=== PATIENT | female | born 1960 | race Caucasian/White ===

== ENCOUNTER 2016-09-29 04:21 | Inpatient (IN) | payer BC ==
[2016-09-16 09:15] LABS: BASOPHILS 0.8 %; BASOPHILS ABSOLUTE 0.05 10/3/uL (0.0-0.16); EOSINOPHILS 2.2 %; EOSINOPHILS ABSOLUTE 0.13 10/3/uL (0.0-0.53); HEMOGLOBIN 14.4 g/dL (12.0-16.0); IMMATURE GRANULOCYTES 0.3 %; IMMATURE GRANULOCYTES ABSOLUTE 0.02 10/3/uL (0.0-0.11); LYMPHOCYTES 37.5 %; LYMPHOCYTES ABSOLUTE 2.26 10/3/uL (0.67-4.30); MEAN CORPUS HGB CONC 34.3 g/dL (32.0-36.0); MEAN PLATELET VOLUME 8.6 fL (9.2-13.0); MONOCYTES 5.1 %; MONOCYTES ABSOLUTE 0.31 10/3/uL (0.21-1.20); NEUTROPHILS 54.1 %; NEUTROPHILS ABSOLUTE 3.25 10/3/uL (2.02-8.40); PLATELET COUNT 361 10/3/uL (150-400); RBC DISTRIBUTION WIDTH 13.8 % (12.0-16.0); RED CELL COUNT 4.96 10/6/uL (4.0-5.6)
[2016-09-16 09:17] LABS: MANUAL DIFF NO %; MEAN CORPUSCULAR VOLUME 84.7 fL (80-100)
[2016-09-16 09:28] LABS: INTERNATIONAL NORMAL RATI 1.1 UNITS (-); PROTIME (NOT ORD) 13.8 SEC (12.0-14.5)
[2016-09-16 09:32] LABS: A/G RATIO 1.4 (0.7-1.9); ALBUMIN 4.2 G/DL (3.5-5.0); ALKALINE PHOSPHATASE 98 U/L (45-117); BUN (BLOOD UREA NITROGEN) 10 MG/DL (6-23); CALCIUM, SERUM 9.4 MG/DL (8.5-10.4); CHLORIDE, SERUM 108 MMOL/L (96-112); CO2 (CARBON DIOXIDE) 27 MMOL/L (24-34); CREATININE 0.75 MG/DL (0.55-1.02); GFR AFRICAN AMERICAN 103 ML/MIN (>=60); GFR NON AFRICAN AMERICAN 88 ML/MIN (>=60); GLOBULIN 2.9 G/DL (2.5-4.1); GLUCOSE, SERUM 108 MG/DL (60-99); SGOT(AST) 20 U/L (5-40); SGPT(ALT) 31 U/L (5-65); SODIUM, SERUM 140 MMOL/L (135-148); TOTAL BILIRUBIN 0.6 MG/DL (0-1.2); TOTAL PROTEIN 7.1 G/DL (6.0-8.5)
[2016-09-16 10:50] LABS: ASCORBIC ACID (UR NOT ORDER) NEG (NEG); BILIRUBIN, URINE NEGATIVE (NEG); KETONE, URINE NEGATIVE (NEG); LEUKOCYTE ESTERASE(NOT OR SMALL (NEG); WBC (NOT ORDERED) (RFLEX) 4 (0-5)
--- NOTE | ~2016-09-29 | DS ---
Discharge Summary [facility] [address] [place]. [address] NAME: ROLAND GUTIÉRREZ : 58 STATUS : DIS IN PAT#: [id number] AGE: 56 ADM/REG DATE : 09/29/16 MR#: [id number] REPORT SERV DATE: 10/18/16 DICTATED BY: ALFREDA MATUTE DATE: 10/14/16 REPORT STATUS : Draft TRANSCRIBED BY: DORINDA DATE: 10/14/16 Data Collection from hospitalization DISCHARGE DIAGNOSES: 1. Severe bilateral knee degenerative joint disease. 2. Arthritis. CONSULTATIONS: None. PROCEDURES: 1. Bilateral posterior stabilized total knee replacement, cemented, 09/29/2016. 2. Venous Doppler ultrasound of the bilateral lower extremities, 10/01/2016. PATHOLOGY: Bone and soft tissue, right and left knee arthroplasty-degenerative joint disease with eburnation. No infection or neoplasm. MEDICATIONS: 1. Vitamin D 2000 units daily. 2. Colace 100 mg twice a day. 3. Ferrous sulfate 300 mg with breakfast and supper. 4. Theragran tablets, one tablet with breakfast. 5. Coumadin daily as instructed. 6. Tylenol 650 mg every 4 hours as needed. 7. Mylanta 30 mL as needed. 8. Dulcolax 15 mg as needed. 9. Marinol 5 mg every 8 hours as needed. 10.[place] 7.5/325 mg one tablet every 4 hours as needed. 11.Milk of magnesia 30 mL as needed. 12.Zofran 4 mg every 4 hours as needed. 13.Percocet 5/325 mg two tablets every 4 hours as needed as instructed. 14.MiraLAX one packet twice a day as needed. 15.Phenergan 25 mg every 4 hours as needed. CONDITION AT DISCHARGE: Stable. DISPOSITION: The patient was discharged to [facility] on a regular diet with activities as instructed. She would follow up with me on 10/12/2016. HOSPITAL COURSE: This is a 56-year-old female, who has been seen in the clinic with bilateral knee pain. She had failed NSAIDs and injections. The patient has severe bilateral knee degenerative joint disease. Treatment options were discussed and it was elected to proceed with surgical intervention. She was admitted to the hospital at this time for further evaluation and treatment. Upon admission, she was taken to the operating room where she underwent the above-mentioned procedure. She tolerated this well. There were no complications. On postop day #1, she was doing well. She was up sitting in a bedside chair. She did have some nausea. On postop day #2, she complained of some increased pain. Her blood pressure was in the 80s/50s Discharge Summary [facility] [id number] [place]. [address] NAME: ROLAND GUTIÉRREZ : 58 STATUS : DIS IN PAT#: [id number] AGE: 56 ADM/REG DATE : 09/29/16 MR#: [id number] REPORT SERV DATE: 10/18/16 DICTATED BY: ALFREDA MATUTE DATE: 10/14/16 REPORT STATUS : Draft TRANSCRIBED BY: DORINDA DATE: 10/14/16 and narcotics were held due to her blood pressure. SCDs/HIWOT hose were in place. Homans sign was positive. Venous Doppler ultrasound of the bilateral lower extremities was performed and was negative for DVT. Over the next couple of days, she continued to progress. She had better pain control. Discharge planning was performed. Her hypotension was improving. She was transfused one unit of packed red blood cells. She was encouraged to mobilize with physical therapy. She was progressing slowly. Discharge planning was performed. We encouraged oral fluids. On 10/03/2016, the patient said she was feeling better. She was alert and cooperative. INR level was 2.3. Discharge instructions were given. Due to her improved and stable condition, she was discharged to [facility] with the above-stated instructions. Information collected by: Laverne Akbar I submit the above information as my discharge summary. SHARIFA/DORINDA Rosemarie Matute M.D. / [id number] CC: Erich Carmona M.D. [facility]
--- NOTE | ~2016-09-29 | OP ---
Record Of Operation [facility] [address] [place]. [address] NAME: ROLAND GUTIÉRREZ : 58 STATUS : ADM IN PAT#: [id number] AGE: 56 ADM/REG DATE : 09/29/16 MR#: [id number] REPORT SERV DATE: 09/29/16 DICTATED BY: ALFREDA MATUTE DATE: 09/29/16 REPORT STATUS : Draft TRANSCRIBED BY: MODShanta DATE: 09/29/16 DATE OF PROCEDURE: 09/29/2016 PREOPERATIVE DIAGNOSIS: Severe bilateral knee degenerative joint disease. POSTOPERATIVE DIAGNOSIS: Severe bilateral knee degenerative joint disease. OPERATION: Bilateral posterior stabilized total knee replacement, cemented. SIDE: Right and left. SIZE: See chart. ANESTHESIA: See chart. ESTIMATED BLOOD LOSS: About 10 mL, each knee. TOURNIQUET TIME: Approximately 1 hour and 10 minutes. COMPLICATIONS: None. SPECIMENS: Articular surfaces. PROCEDURE: The patient was appropriately identified and marked. The operative side agreed with the consent form and it was checked by all members of the surgical team. The patient was taken to the operating room and anesthesia was induced per the anesthesiologist. The patient was carefully transferred to the operating table without incident. The patient received appropriate prophylactic antibiotics and a Canales catheter was placed in the standard sterile technique. The patient was then carefully positioned, padded, prepped and draped in the normal sterile fashion. The operative leg had been appropriately identified and checked by all members of the operating team against the consent form and found to be the correct limb. The patient's lower extremity was then exsanguinated with an Juan Alberto wrap and a tourniquet was inflated to 350 mmHg. Sharp dissection was carried out through a straight midline longitudinal incision and electrocautery through the fat. Sharp quad splitting approach was carried out between about the medial 10 percent of the tendon and the lateral 90 percent of the tendon and down around the medial aspect of the patella and then 1 cm medial to the tibial tubercle. The patella was carefully everted and the posterior fat pad was excised and gentle MCL elevation was carried out off the proximal medial tibia subperiosteally. IM guide was placed in the distal femur after using the appropriate drill. The distal femoral cutting guide was held with 2 pins and the distal cut made. Meniscal fragments and the ACL and the PCL were excised with electrocautery, carefully staying anterior to the posterior fat pad. The proximal tibial alignment guide was set appropriately and the proximal tibial cut made. Spacer block verified full extension with excellent mediolateral balance. Sizing guide was used to place 2 drill holes in the distal femur and the four-in-one cutting block was then placed, impacted and checked Record Of Operation [facility] [address] [place]. [address] NAME: ROLAND GUTIÉRREZ : 58 STATUS : ADM IN PAT#: [id number] AGE: 56 ADM/REG DATE : 09/29/16 MR#: [id number] REPORT SERV DATE: 09/29/16 DICTATED BY: ALFREDA MATUTE DATE: 09/29/16 REPORT STATUS : Draft TRANSCRIBED BY: DORINDA DATE: 09/29/16 to be sure it would not notch with an cas wing and it was held with 2 pins. The anterior cut, posterior cut, anterior chamfer and posterior chamfer cuts were made. The pins were removed and the block was removed. A posterior release was carried out with a curved 3/4 inch osteotome staying right on the bone posteriorly. The box-cut guide was then placed, impacted and held with 2 pins and a reciprocating saw was used to cut out the box. With the trial components in place, there was excellent medial/lateral balance. The patella was then measured with a caliper, cut first with an oscillating saw and then reamed with a patella reamer. With the trial patella in place, there was excellent patellar tracking. Rotation was marked on the tibia and the tibia prepared with a drill and stamp chisel. All surfaces were then copiously irrigated with pulsatile lavage, carefully dried and then vacuum-mixed cement was pressurized with a cement gun in a doughy phase. The tibial component was placed, impacted and excess cement was removed. The cement was then pressurized in the femur and placed on the posterior runners of the femoral component, which was placed, impacted and excess cement removed and the knee was brought out into extension on a trial spacer. The cement was then pressurized in the patella. Patellar component was then placed, clamped and excess cement was removed. Once all cement was hardened, the knee was taken through range of motion. Further extruded cement was removed with a small osteotome. Then based on the trial inserts, we decided on the actual insert, which was placed in the standard fashion and held with a locking mechanism. The knee was then copiously irrigated and then closed in a layered fashion over a medium Hemovac drain superolaterally with interrupted #1 in the deep fascia, 2-0 subcutaneous and alma in the skin. The wounds were dressed sterilely and the tourniquet was deflated. After completion of the first knee and discussion with the anesthesiologist, all parameters were acceptable and we decided to proceed with the second knee. Same procedure as that dictated above was carried out on the contralateral knee. The contralateral leg was again appropriately identified and checked by all members of the operating team against the consent form and found to be the correct limb. The patient's lower extremity was then exsanguinated with an Juan Alberto wrap and a tourniquet was inflated to 350 mmHg. Sharp dissection was carried out through a straight midline longitudinal incision and electrocautery through the fat. Sharp quad splitting approach was carried out between about the medial 10 percent of the tendon and the lateral 90 percent of the tendon and down around the medial aspect of the patella and then 1 cm medial to the tibial tubercle. The patella was carefully everted and the posterior fat pad was excised and gentle MCL elevation was carried out off the proximal medial tibia subperiosteally. IM guide was placed in the distal femur after using the appropriate drill. The distal femoral cutting guide was held with 2 pins and the distal cut made. Meniscal fragments and the ACL and the PCL were excised with electrocautery, carefully staying anterior to the posterior fat pad. The proximal tibial alignment guide was set appropriately and the proximal tibial cut made. Spacer block verified full extension with excellent mediolateral balance. Sizing guide was used to place 2 drill holes in the distal femur and the four-in-one cutting block was then placed, impacted and checked to be sure it would not notch with an cas wing and it was held with 2 pins. The anterior cut, posterior cut, anterior chamfer and posterior chamfer cuts were made. The pins were removed and the block was removed. A posterior release was carried out with a curved 3/4 inch osteotome staying right on the bone posteriorly. The box cut guide was then placed, impacted and held with 2 pins and a reciprocating saw was used to Record Of Operation [address] [place]. [address] NAME: ROLAND GUTIÉRREZ : 58 STATUS : ADM IN PAT#: [id number] AGE: 56 ADM/REG DATE : 09/29/16 MR#: [id number] REPORT SERV DATE: 09/29/16 DICTATED BY: ALFREDA MATUTE DATE: 09/29/16 REPORT STATUS : Draft TRANSCRIBED BY: DORINDA DATE: 09/29/16 cut out the box. With the trial components in place, there was excellent medial/lateral balance. The patella was then measured with a caliper, cut first with an oscillating saw and then reamed with a patella reamer. With the trial patella in place, there was excellent patellar tracking. Rotation was marked on the tibia and the tibia prepared with a drill and stamp chisel. All surfaces were then copiously irrigated with pulsatile lavage, carefully dried and then vacuum-mixed cement was pressurized with a cement gun in a doughy phase. The tibial component was placed, impacted and excess cement was removed. The cement was then pressurized in the femur and placed on the posterior runners of the femoral component, which was placed, impacted and excess cement removed and the knee was brought out into extension on a trial spacer. The cement was then pressurized in the patella. Patellar component was then placed, clamped and excess cement was removed. Once all cement was hardened, the knee was taken through range of motion. Further extruded cement was removed with a small osteotome. Then based on the trial inserts, we decided on the actual insert, which was placed in the standard fashion and held with a locking mechanism. The knee was then copiously irrigated and then closed in a layered fashion over a medium Hemovac drain superolaterally with interrupted #1 in the deep fascia, 2-0 subcutaneous and alma in the skin. The wounds were dressed sterilely and the tourniquet was deflated. The patient was then awakened and taken to the postanesthesia care unit without incident. All counts were correct at the end of the case. WTB/MODL Rosemarie Matute M.D. / [id number] CC: Erich Carmona M.D.
[~2016-09-29 04:21] MED LIST: ALEVE220 MG PO; MOBIC15 MG PO; VITAMIN D2000 UNIT PO
[2016-09-30 06:06] LABS: BUN (BLOOD UREA NITROGEN) 9 MG/DL (6-23); CALCIUM, SERUM 8.5 MG/DL (8.5-10.4); CHLORIDE, SERUM 107 MMOL/L (96-112); CO2 (CARBON DIOXIDE) 27 MMOL/L (24-34); CREATININE 0.59 MG/DL (0.55-1.02); GFR AFRICAN AMERICAN 118 ML/MIN (>=60); GFR NON AFRICAN AMERICAN 102 ML/MIN (>=60); GLUCOSE, SERUM 116 MG/DL (60-99); POTASSIUM, SERUM 4.1 MMOL/L (3.5-5.3); SODIUM, SERUM 140 MMOL/L (135-148)
[2016-09-30 06:07] LABS: HEMATOCRIT 28.3 % (36.0-48.0); HEMOGLOBIN 9.6 g/dL (12.0-16.0)
[2016-09-30 06:11] LABS: INTERNATIONAL NORMAL RATI 1.2 UNITS (-); PROTIME (NOT ORD) 15.2 SEC (12.0-14.5)
[2016-10-01 05:59] LABS: HEMOGLOBIN 8.5 g/dL (12.0-16.0)
[2016-10-01 06:00] LABS: HEMATOCRIT 25.3 % (36.0-48.0)
[2016-10-01 06:13] LABS: INTERNATIONAL NORMAL RATI 1.6 UNITS (-)
[2016-10-01 06:16] LABS: PROTIME (NOT ORD) 18.6 SEC (12.0-14.5)
[2016-10-02 04:39] LABS: HEMATOCRIT 23.7 % (36.0-48.0); HEMOGLOBIN 7.9 g/dL (12.0-16.0)
[2016-10-02 04:43] LABS: INTERNATIONAL NORMAL RATI 2.2 UNITS (-)
[2016-10-02 04:46] LABS: PROTIME (NOT ORD) 24.1 SEC (12.0-14.5)
[2016-10-02 04:48] LABS: BUN (BLOOD UREA NITROGEN) 7 MG/DL (6-23); CALCIUM, SERUM 8.2 MG/DL (8.5-10.4); CHLORIDE, SERUM 111 MMOL/L (96-112); CO2 (CARBON DIOXIDE) 26 MMOL/L (24-34); CREATININE 0.51 MG/DL (0.55-1.02); GFR AFRICAN AMERICAN 124 ML/MIN (>=60); GFR NON AFRICAN AMERICAN 107 ML/MIN (>=60); GLUCOSE, SERUM 115 MG/DL (60-99); POTASSIUM, SERUM 4.3 MMOL/L (3.5-5.3); SODIUM, SERUM 143 MMOL/L (135-148)
[2016-10-03 04:37] LABS: INTERNATIONAL NORMAL RATI 2.3 UNITS (-); PROTIME (NOT ORD) 25.2 SEC (12.0-14.5)
[2016-10-03 10:07] LABS: HEMOGLOBIN 9.4 g/dL (12.0-16.0)
[2016-10-03 10:09] LABS: HEMATOCRIT 27.9 % (36.0-48.0)
== END 2016-10-03 17:06 | DRG 462 ==
LOC: SDC/OF 04:21 → PACU 09:39 → 3SO 11:12
PROVIDERS: Physical Medicine & Rehabilitation; Specialist
PROC: 0SRC0J9 Replacement of Right Knee Joint with Synthetic Substitute, Cemented, Open Approach (ICD-10-PCS; 2016-09-29)
PROC: 0SRD0J9 Replacement of Left Knee Joint with Synthetic Substitute, Cemented, Open Approach (ICD-10-PCS; principal; 2016-09-29 05:45)
PROC: 30233N1 Transfusion of Nonautologous Red Blood Cells into Peripheral Vein, Percutaneous Approach (ICD-10-PCS; 2016-10-02)
DX: M17.0 Bilateral primary osteoarthritis of knee (principal); I95.9 Hypotension, unspecified; D62 Acute posthemorrhagic anemia; I45.10 Unspecified right bundle-branch block
CPT/HCPCS: 36415; 71020; 80048; 80053; 81001; 85014; 85018; 85025; 85610; 86850; 86900; 86901; 86920; 87086; 87641; 88305; 88311; 93005; 93970; 97110-GP; 97116-GP; 97161-GP; 97165-GO; 97535-GO; A9270-GY; C1776; J0690; J1885; J2250; J2270; J2405; J2795; J3010; P9016